=== PATIENT | female | born 1975 | race African-American/Black ===

== ENCOUNTER 2024-08-20 13:35 | Outpatient (CLI) | payer OTHER | END 2024-08-20 13:36 | disposition home or self-care (01) | LOC: CSHMAMMO 13:35 | PROVIDERS: ATTEND Nurse Practitioner Family | DX: Z12.31 Encounter for screening mammogram for malignant neoplasm of breast (principal); N63.21 Unspecified lump in the left breast, upper outer quadrant | CPT/HCPCS: 77063; 77067 ==